=== PATIENT | male | born 1960 | race Caucasian/White ===

== ENCOUNTER 2023-11-28 10:02 | Emergency (ER) | payer BC ==
[~2023-11-28 10:02] MED LIST: Potassium Chloride 10 MEQ Tab.ER ONE
[2023-11-28] MEDS: HYDROmorphone 2 MG/ML Syringe IVPUSH ONE ×2 (10:26→12:40)
[2023-11-28] MEDS ORDERED: Ondansetron 4 MG/2 ML SDV IVPUSH ONE (10:33)
[2023-11-28 10:48] LABS: BASOPHILS ABSOLUTE AUTO 0.02 K/uL (0.02-0.10); BASOPHILS PERCENT AUTO 0.1 % (0.0-0.5); EOSINOPHILS ABSOLUTE AUTO 0.06 K/uL (0.04-0.40); EOSINOPHILS PERCENT AUTO 0.4 % (1.0-5.0); HEMATOCRIT 39.2 % (40.0-54.0); HEMOGLOBIN 13.1 g/dL (13.0-18.0); LYMPHOCYTES ABSOLUTE AUTO 1.16 K/uL (1.50-4.00); LYMPHOCYTES PERCENT AUTO 8.4 % (20.0-40.0); MEAN CORPUSCULAR HEMOGLOBIN 27.6 pg (27.0-32.0); MEAN CORPUSCULAR HGB CONC 33.4 g/dL (31.0-35.0); MEAN CORPUSCULAR VOLUME 83 fL (76-96); MEAN PLATELET VOLUME 9.1 fL (6.0-10.0); MONOCYTES PERCENT AUTO 8.7 % (3.0-10.0); NEUTROPHILS ABSOLUTE AUTO 11.39 K/uL (2.00-7.50); NEUTROPHILS PERCENT AUTO 82.4 % (45.0-70.0); PLATELET COUNT,PLT 339 K/uL (150-400); RED BLOOD CELL COUNT 4.74 M/uL (4.50-6.50); RED CELL DISTRIBUTION WIDTH 13.9 % (11.0-16.0); WHITE BLOOD CELL COUNT,WBC 13.8 K/uL (4.0-11.0)
[2023-11-28 10:53] LABS: APPEARANCE,URINE CLOUDY (CLEAR); BILIRUBIN,URINE NEGATIVE (NEGATIVE); COLOR,URINE YELLOW; GLUCOSE,URINE NEGATIVE (NEGATIVE); KETONES,URINE NEGATIVE (NEGATIVE); LEUKOCYTE ESTERASE,URINE NEGATIVE (NEGATIVE); NITRITE,URINE NEGATIVE (NEGATIVE); OCCULT BLOOD,URINE TRACE-INTACT (NEGATIVE); PROTEIN,URINE TRACE mg/dL (NEGATIVE); UROBILINOGEN,URINE 0.2 E.U./dL (0.2-1.0)
[2023-11-28 11:08] LABS: A/G RATIO 1.1 (0.8-2.0); ALANINE AMINOTRANSFERASE,ALT 28 U/L (12-78); ALKALINE PHOSPHATASE 130 U/L (46-116); ANION GAP 13.5 mmol/L (5.0-15.0); ASPARTATE AMNIOTRANSFERASE,AST 25 U/L (15-37); BILIRUBIN TOTAL 0.5 mg/dL (0.0-1.0); BLOOD UREA NITROGEN,BUN 12 mg/dL (8-26); BUN/CREATININE RATIO 14.5 (6-25); CALCIUM 8.3 mg/dL (8.5-10.1); CARBON DIOXIDE,CO2 25.6 mmol/L (21.0-32.0); CHLORIDE,CL 92 mmol/L (98-107); CREATININE 0.83 mg/dL (0.70-1.30); ESTIMATED GFR 98 mL/min (>60); GLUCOSE RANDOM 140 mg/dL (74-100); POTASSIUM,K 3.1 mmol/L (3.5-5.1); PROTEIN TOTAL,TP 7.5 g/dL (6.4-8.2); SODIUM,NA 128 mmol/L (136-145)
[2023-11-28] MEDS ORDERED: Iopamidol 612 MG/ML 100 ML Bottle IV PRN (11:08)
[2023-11-28 11:09] LABS: RBC,URINE 0-5 /HPF; WBC,URINE 0-5 /HPF
[2023-11-28 11:10] LABS: LIPASE 1664 U/L (16-77)
[2023-11-28] MEDS ORDERED: Sodium Chloride 0.9% 50 ML SDV FLUSH SCH (11:15)
[2023-11-28] MEDS ORDERED: Sodium Chloride 0.9% 1,000 ML IV ONE (11:49)
[2023-11-28] MEDS ORDERED: Potassium Chloride 10 MEQ Tab.ER ONE (12:16)
[2023-11-28] MEDS ORDERED: Potassium Chloride 20 MEQ Tab.ER ONE (12:16)
[2023-11-28] MEDS ORDERED: Potassium Chloride 20 MEQ Tab.ER PO ONE (12:22)
== END 2023-11-28 13:00 | disposition home or self-care (01) ==
LOC: LB.ED 10:02
DX: K85.90 Acute pancreatitis without necrosis or infection, unspecified (principal); I10 Essential (primary) hypertension; F17.210 Nicotine dependence, cigarettes, uncomplicated; K21.9 Gastro-esophageal reflux disease without esophagitis; Z79.82 Long term (current) use of aspirin; Z79.899 Other long term (current) drug therapy
CPT/HCPCS: 36415; 74177; 80053; 81001; 83690; 83735; 85025; 96361; 96374; 96375; 99284; 99284-25; A9270-GY; J1170; J2405; J3490; J7030; Q9967

== ENCOUNTER 2023-11-29 02:30 | Emergency (ER) | payer BC ==
[2023-11-29] MEDS ORDERED: Acetaminophen/oxyCODONE 325-5 MG Tab ONE (03:00)
[2023-11-29] MEDS ORDERED: Morphine 30 MG Tab.ER ONE (03:00)
[2023-11-29] MEDS: HYDROmorphone 2 MG/ML Syringe SUBCUT SCH (03:00)
== END 2023-11-29 03:20 | disposition home or self-care (01) ==
LOC: LB.ED 02:30
DX: K85.90 Acute pancreatitis without necrosis or infection, unspecified (principal); I10 Essential (primary) hypertension; K21.9 Gastro-esophageal reflux disease without esophagitis; F17.210 Nicotine dependence, cigarettes, uncomplicated; Z88.8 Allergy status to other drugs, medicaments and biological substances; Z79.82 Long term (current) use of aspirin; Z79.899 Other long term (current) drug therapy
CPT/HCPCS: 96372; 99283; 99284; A9270-GY; J1170

== ENCOUNTER 2024-04-07 08:26 | Day surgery (SDC) | payer MEDICARE ==
[~2024-04-07 08:26] MED LIST changes: +Metoclopramide 10 MG/2 ML SDV IV PRN; -Potassium Chloride 10 MEQ Tab.ER ONE; +Sodium Chloride 0.9% 1,000 ML IV SCH
[2024-04-07] MEDS: Sodium Chloride 0.9% 1,000 ML IV SCH (08:57)
== END 2024-04-07 10:30 | disposition home or self-care (01) ==
LOC: LB.SDS 08:26
PROVIDERS: ATTEND Surgery
DX: Z12.11 Encounter for screening for malignant neoplasm of colon (principal); D12.3 Benign neoplasm of transverse colon; D12.5 Benign neoplasm of sigmoid colon; K57.30 Diverticulosis of large intestine without perforation or abscess without bleeding; I10 Essential (primary) hypertension; F17.200 Nicotine dependence, unspecified, uncomplicated
CPT/HCPCS: 45385; J2704; J7030; 88305

== ENCOUNTER 2024-12-10 15:34 | Observation (INO) | payer MEDICARE ==
[2024-12-10] MEDS: Ondansetron 4 MG/2 ML SDV IVPUSH ONE ×2 (15:50→16:03)
[2024-12-10] MEDS: Sodium Chloride 0.9% 1,000 ML IV SCH ×2 (16:00→18:35)
[2024-12-10] MEDS: Prochlorperazine 10 MG/2 ML SDV IVPUSH ONE (16:10)
[2024-12-10] MEDS: Ketorolac 15 MG/ML SDV IVPUSH ONE (16:10)
[2024-12-10 16:15] LABS: BASOPHILS ABSOLUTE AUTO 0.02 K/uL (0.02-0.10); BASOPHILS PERCENT AUTO 0.1 % (0.0-0.5); HEMATOCRIT 45.7 % (40.0-54.0); HEMOGLOBIN 15.8 g/dL (13.0-18.0); LYMPHOCYTES PERCENT AUTO 9.9 % (20.0-40.0); MEAN CORPUSCULAR HEMOGLOBIN 29.3 pg (27.0-32.0); MEAN CORPUSCULAR HGB CONC 34.6 g/dL (31.0-35.0); MEAN CORPUSCULAR VOLUME 85 fL (76-96); MEAN PLATELET VOLUME 9.4 fL (6.0-10.0); MONOCYTES PERCENT AUTO 4.2 % (3.0-10.0); NEUTROPHILS ABSOLUTE AUTO 12.15 K/uL (2.00-7.50); NEUTROPHILS PERCENT AUTO 85.8 % (45.0-70.0); PLATELET COUNT,PLT 462 K/uL (150-400); RED CELL DISTRIBUTION WIDTH 12.8 % (11.0-16.0); WHITE BLOOD CELL COUNT,WBC 14.2 K/uL (4.0-11.0)
[2024-12-10] MEDS: Prochlorperazine 10 MG/2 ML SDV ONE (16:22)
[2024-12-10 16:28] LABS: A/G RATIO 1.1 (0.8-2.0); ALANINE AMINOTRANSFERASE,ALT 33 U/L (12-78); ALBUMIN 4.6 g/dL (3.4-5.0); ALKALINE PHOSPHATASE 153 U/L (46-116); ANION GAP 17.9 mmol/L (5.0-15.0); ASPARTATE AMNIOTRANSFERASE,AST 19 U/L (15-37); BILIRUBIN TOTAL 0.9 mg/dL (0.0-1.0); BLOOD UREA NITROGEN,BUN 24 mg/dL (8-26); BUN/CREATININE RATIO 20.5 (6-25); CALCIUM 9.9 mg/dL (8.5-10.1); CARBON DIOXIDE,CO2 28.1 mmol/L (21.0-32.0); CHLORIDE,CL 99 mmol/L (98-107); CREATININE 1.17 mg/dL (0.70-1.30); ESTIMATED GFR 69 mL/min (>60); GLUCOSE RANDOM 166 mg/dL (74-100); PROTEIN TOTAL,TP 8.8 g/dL (6.4-8.2); SODIUM,NA 142 mmol/L (136-145)
[2024-12-10 16:45] LABS: LIPASE 620 U/L (16-77)
[2024-12-10] MEDS: Losartan 50 MG Tab PO ONE (18:33)
[2024-12-10] MEDS: Diltiazem 240 MG Cap.ER PO ONE (18:33)
[2024-12-10] MEDS: Diltiazem 240 MG Cap.ER ONE (18:57)
[2024-12-10] MEDS: NS + KCl 20mEq/L 1,000 ML IV SCH (22:20)
[2024-12-10] MEDS ORDERED: Ondansetron 4 MG/2 ML SDV IVPUSH PRN (22:31)
[2024-12-10] MEDS ORDERED: Naloxone 2 MG/2 ML Syringe IVPUSH PRN (22:32)
[2024-12-10] MEDS ORDERED: Morphine 2 MG/ML SYRINGE IVPUSH PRN (22:32)
[2024-12-11] MEDS: Iopamidol 612 MG/ML 100 ML Bottle IV SCH (08:38)
[2024-12-11] MEDS: Sodium Chloride 0.9% 50 ML SDV FLUSH ONE (08:38)
[2024-12-11 08:46] LABS: HEMATOCRIT 38.4 % (40.0-54.0); HEMOGLOBIN 12.9 g/dL (13.0-18.0); MEAN CORPUSCULAR HEMOGLOBIN 29.5 pg (27.0-32.0); MEAN CORPUSCULAR HGB CONC 33.6 g/dL (31.0-35.0); RED BLOOD CELL COUNT 4.38 M/uL (4.50-6.50); RED CELL DISTRIBUTION WIDTH 13.1 % (11.0-16.0); WHITE BLOOD CELL COUNT,WBC 9.6 K/uL (4.0-11.0)
[2024-12-11 09:00] LABS: A/G RATIO 1.1 (0.8-2.0); ALBUMIN 3.6 g/dL (3.4-5.0); ANION GAP 12.6 mmol/L (5.0-15.0); BILIRUBIN TOTAL 0.9 mg/dL (0.0-1.0); BUN/CREATININE RATIO 22.8 (6-25); CALCIUM 8.5 mg/dL (8.5-10.1); CARBON DIOXIDE,CO2 29.5 mmol/L (21.0-32.0); CREATININE 0.79 mg/dL (0.70-1.30); EST CRCL DRUG DOSING (CG) 102.32 mL/min; POTASSIUM,K 3.1 mmol/L (3.5-5.1); PROTEIN TOTAL,TP 6.8 g/dL (6.4-8.2)
[2024-12-11] MEDS: Potassium Chloride Riders 10 MEQ in Premix Bag 1 BAG IV ONE (09:51)
== END 2024-12-11 13:48 | disposition home or self-care (01) ==
LOC: LB.ED 15:34 → LB.MS 18:56
PROVIDERS: ADMIT Family Medicine; ATTEND Family Medicine
DX: K85.20 Alcohol induced acute pancreatitis without necrosis or infection (principal); I10 Essential (primary) hypertension; E78.00 Pure hypercholesterolemia, unspecified; K21.9 Gastro-esophageal reflux disease without esophagitis; F32.A Depression, unspecified; F17.210 Nicotine dependence, cigarettes, uncomplicated; Z79.899 Other long term (current) drug therapy
CPT/HCPCS: 36415; 74177; 80053; 83690; 85025; 85027; 96361; 96365; 96366; 96374; 96375; 99222; 99239; 99285-25; A9270-GY; G0378; J0780; J1885; J2405; J3480; J3490; J7030; Q9967

== ENCOUNTER 2025-03-19 14:47 | Inpatient (IN) | payer MEDICARE ==
[2025-03-19] MEDS: Sodium Chloride 0.9% 1,000 ML IV SCH ×2 (15:10→17:30)
[2025-03-19] MEDS: Morphine 4 MG/ML VIAL IVPUSH ONE ×2 (15:22→15:30)
[2025-03-19] MEDS ORDERED: Sodium Chloride 0.9% 10 ML Syringe FLUSH PRN (15:23)
[2025-03-19] MEDS: Ondansetron 4 MG/2 ML SDV IVPUSH ONE (15:24)
[2025-03-19 15:38] LABS: HEMATOCRIT 40.8 % (40.0-54.0); MEAN CORPUSCULAR HEMOGLOBIN 28.6 pg (27.0-32.0); MEAN CORPUSCULAR HGB CONC 34.3 g/dL (31.0-35.0); MEAN PLATELET VOLUME 9.2 fL (6.0-10.0); RED BLOOD CELL COUNT 4.9 M/uL (4.50-6.50); RED CELL DISTRIBUTION WIDTH 13.1 % (11.0-16.0); WHITE BLOOD CELL COUNT,WBC 15.4 K/uL (4.0-11.0)
[2025-03-19 15:43] LABS: ALANINE AMINOTRANSFERASE,ALT 23 U/L (12-78); ALBUMIN 4.1 g/dL (3.4-5.0); ALKALINE PHOSPHATASE 162 U/L (46-116); ANION GAP 14.2 mmol/L (5.0-15.0); ASPARTATE AMNIOTRANSFERASE,AST 18 U/L (15-37); BILIRUBIN TOTAL 0.7 mg/dL (0.0-1.0); BLOOD UREA NITROGEN,BUN 10 mg/dL (8-26); BUN/CREATININE RATIO 9.9 (6-25); C-REACTIVE PROTEIN 34.6 mg/L (<5.0); CALCIUM 9.9 mg/dL (8.5-10.1); CHLORIDE,CL 93 mmol/L (98-107); CREATININE 1.01 mg/dL (0.70-1.30); ESTIMATED GFR 82 mL/min (>60); GLUCOSE RANDOM 129 mg/dL (74-100); POTASSIUM,K 3.2 mmol/L (3.5-5.1); PROTEIN TOTAL,TP 8.3 g/dL (6.4-8.2); SODIUM,NA 133 mmol/L (136-145)
[2025-03-19 15:45] LABS: LIPASE 302 U/L (16-77)
[2025-03-19] MEDS: HYDROmorphone 2 MG/ML Syringe IVPUSH ONE (16:15)
[2025-03-19] MEDS: Iopamidol 612 MG/ML 100 ML Bottle IV PRN (16:30)
[2025-03-19] MEDS: Sodium Chloride 0.9% 50 ML SDV FLUSH SCH (16:30)
[2025-03-19] MEDS: Prochlorperazine 10 MG/2 ML SDV IVPUSH ONE (16:35)
[2025-03-19] MEDS: Potassium Chloride Riders 10 MEQ in Premix Bag 1 BAG IV ONE (16:43)
[2025-03-19] MEDS: Morphine 4 MG/ML VIAL ONE (16:58)
[2025-03-19] MEDS: Ondansetron 4 MG/2 ML SDV ONE (16:59)
[2025-03-19] MEDS: Metoprolol Tartrate 5 MG/5 ML SDV IVPUSH ONE (17:26)
[2025-03-19] MEDS ORDERED: Morphine 30 MG Tab.ER PO PRN (20:58)
[2025-03-19] MEDS: HYDROmorphone 2 MG Tab PO PRN (21:02)
[2025-03-19] MEDS: HYDROmorphone 2 MG/ML Syringe IVPUSH PRN (21:36)
[2025-03-20] MEDS: Esomeprazole 40 MG Cap PO SCH (06:18)
[2025-03-20 08:17] VITALS: BP 97/62; PULSE 93
[2025-03-20] MEDS: Hydrochlorothiazide 25 MG Tab PO SCH (08:18)
[2025-03-20] MEDS: Venlafaxine 37.5 MG Tab PO SCH (08:18)
[2025-03-20] MEDS: Diltiazem 120 MG Cap.CD PO SCH (08:19)
[2025-03-20] MEDS: Enoxaparin 40 MG/0.4 ML Syringe SUBCUT SCH (08:19)
[2025-03-20 08:38] LABS: HEMATOCRIT 33.2 % (40.0-54.0); HEMOGLOBIN 11.2 g/dL (13.0-18.0); MEAN CORPUSCULAR HEMOGLOBIN 29.2 pg (27.0-32.0); MEAN CORPUSCULAR HGB CONC 33.7 g/dL (31.0-35.0); MEAN PLATELET VOLUME 9.2 fL (6.0-10.0); RED BLOOD CELL COUNT 3.84 M/uL (4.50-6.50); WHITE BLOOD CELL COUNT,WBC 10.6 K/uL (4.0-11.0)
[2025-03-20 09:22] LABS: A/G RATIO 0.9 (0.8-2.0); ANION GAP 11.1 mmol/L (5.0-15.0); BILIRUBIN TOTAL 0.6 mg/dL (0.0-1.0); BUN/CREATININE RATIO 13.7 (6-25); C-REACTIVE PROTEIN 96.8 mg/L (<5.0); CALCIUM 8.5 mg/dL (8.5-10.1); CREATININE 0.73 mg/dL (0.70-1.30); EST CRCL DRUG DOSING (CG) 109.25 mL/min; MAGNESIUM 1.7 mg/dL (1.8-2.4); POTASSIUM,K 3.1 mmol/L (3.5-5.1); PROTEIN TOTAL,TP 6.2 g/dL (6.4-8.2)
[2025-03-20] MEDS: Losartan 50 MG Tab PO SCH (09:51)
== END 2025-03-20 10:06 | disposition home or self-care (01) | DRG 440 ==
LOC: LB.ED 14:47 → LB.MS 19:00
PROVIDERS: ADMIT Surgery; ATTEND Surgery
DX: K85.20 Alcohol induced acute pancreatitis without necrosis or infection (principal); K85.00 Idiopathic acute pancreatitis without necrosis or infection; E87.6 Hypokalemia; I10 Essential (primary) hypertension; E78.00 Pure hypercholesterolemia, unspecified; K21.9 Gastro-esophageal reflux disease without esophagitis; I16.0 Hypertensive urgency; F41.9 Anxiety disorder, unspecified; F32.A Depression, unspecified; Z90.49 Acquired absence of other specified parts of digestive tract; Z98.890 Other specified postprocedural states; Z88.8 Allergy status to other drugs, medicaments and biological substances; Z79.82 Long term (current) use of aspirin; Z79.899 Other long term (current) drug therapy
CPT/HCPCS: 36415; 74177; 80053; 83690; 83735; 85027; 86140; 96365; 96375; 99222; 99239; 99285-25; A9270-GY; J0780; J1171; J1650; J2270; J2405; J3480; J3490; J7030; Q9967

== ENCOUNTER 2025-07-07 07:24 | Emergency (ER) | payer MEDICARE ==
[2025-07-07] MEDS ORDERED: Sodium Chloride 0.9% 10 ML Syringe FLUSH PRN (08:26)
[2025-07-07 08:43] LABS: BASOPHILS ABSOLUTE AUTO 0.05 K/uL (0.02-0.10); BASOPHILS PERCENT AUTO 0.3 % (0.0-0.5); EOSINOPHILS ABSOLUTE AUTO 0.30 K/uL (0.04-0.40); EOSINOPHILS PERCENT AUTO 1.6 % (1.0-5.0); LYMPHOCYTES ABSOLUTE AUTO 1.87 K/uL (1.50-4.00); LYMPHOCYTES PERCENT AUTO 10.1 % (20.0-40.0); MEAN PLATELET VOLUME 9.0 fL (6.0-10.0); MONOCYTES ABSOLUTE AUTO 1.74 K/uL (0.20-0.80); MONOCYTES PERCENT AUTO 9.4 % (3.0-10.0); NEUTROPHILS ABSOLUTE AUTO 14.54 K/uL (2.00-7.50); NEUTROPHILS PERCENT AUTO 78.6 % (45.0-70.0); PLATELET COUNT,PLT 269 K/uL (150-400); RED BLOOD CELL COUNT 4.63 M/uL (4.50-6.50); RED CELL DISTRIBUTION WIDTH 17.2 % (11.0-16.0); WHITE BLOOD CELL COUNT,WBC 18.5 K/uL (4.0-11.0)
[2025-07-07 10:21] LABS: BLOOD UREA NITROGEN,BUN 16.0 mg/dL (8-26); CARBON DIOXIDE,CO2 29.3 mmol/L (21.0-32.0); CHLORIDE,CL 103.0 mmol/L (98-107); CREATININE 0.94 mg/dL (0.70-1.30); EST CRCL DRUG DOSING (CG) 84.85 mL/min; ESTIMATED GFR 89.0 mL/min (>60); GLUCOSE RANDOM 100.0 mg/dL (74-100); POTASSIUM,K 3.3 mmol/L (3.5-5.1); SODIUM,NA 139.0 mmol/L (136-145)
[2025-07-07 11:02] VITALS: BP 128/79; PULSE 73
== END 2025-07-07 10:16 | disposition home or self-care (01) ==
LOC: LB.ED 07:24
DX: L08.9 Local infection of the skin and subcutaneous tissue, unspecified (principal); S60.922A Unspecified superficial injury of left hand, initial encounter; E78.00 Pure hypercholesterolemia, unspecified; I10 Essential (primary) hypertension; K21.9 Gastro-esophageal reflux disease without esophagitis; F17.210 Nicotine dependence, cigarettes, uncomplicated; Z88.8 Allergy status to other drugs, medicaments and biological substances; Z79.899 Other long term (current) drug therapy; Z86.16 Personal history of COVID-19; W22.8XXA Striking against or struck by other objects, initial encounter; Y93.89 Activity, other specified
CPT/HCPCS: 36415; 73130-LT; 80048; 85025; 96365; 99283-25; J1335

== ENCOUNTER 2025-07-08 23:28 | Emergency (ER) | payer MEDICARE ==
[2025-07-08] MEDS: Ketorolac 15 MG/ML SDV IVPUSH ONE (23:42)
[2025-07-09 00:10] LABS: BASOPHILS ABSOLUTE AUTO 0.04 K/uL (0.02-0.10); BASOPHILS PERCENT AUTO 0.3 % (0.0-0.5); EOSINOPHILS ABSOLUTE AUTO 0.42 K/uL (0.04-0.40); EOSINOPHILS PERCENT AUTO 3.3 % (1.0-5.0); LYMPHOCYTES ABSOLUTE AUTO 1.28 K/uL (1.50-4.00); LYMPHOCYTES PERCENT AUTO 10.0 % (20.0-40.0); MEAN PLATELET VOLUME 8.4 fL (6.0-10.0); MONOCYTES ABSOLUTE AUTO 0.99 K/uL (0.20-0.80); MONOCYTES PERCENT AUTO 7.7 % (3.0-10.0); NEUTROPHILS ABSOLUTE AUTO 10.11 K/uL (2.00-7.50); NEUTROPHILS PERCENT AUTO 78.7 % (45.0-70.0); PLATELET COUNT,PLT 264 K/uL (150-400); RED BLOOD CELL COUNT 4.06 M/uL (4.50-6.50); RED CELL DISTRIBUTION WIDTH 16.8 % (11.0-16.0); WHITE BLOOD CELL COUNT,WBC 12.8 K/uL (4.0-11.0)
[2025-07-09] MEDS: VANCOmycin 1.5 GM/300 ML 1.5 GM in Premix Bag 1 BAG IV ONE (00:12)
[2025-07-09 00:25] LABS: BLOOD UREA NITROGEN,BUN 10.0 mg/dL (8-26); CARBON DIOXIDE,CO2 28.2 mmol/L (21.0-32.0); CHLORIDE,CL 103.0 mmol/L (98-107); CREATININE 0.87 mg/dL (0.70-1.30); EST CRCL DRUG DOSING (CG) 91.67 mL/min; ESTIMATED GFR 95.0 mL/min (>60); GLUCOSE RANDOM 125.0 mg/dL (74-100); POTASSIUM,K 3.1 mmol/L (3.5-5.1); SODIUM,NA 138.0 mmol/L (136-145)
[2025-07-09] MEDS: Iopamidol 612 MG/ML 100 ML Bottle IV SCH (01:34)
[2025-07-09] MEDS: Sodium Chloride 0.9% 50 ML SDV FLUSH ONE (01:34)
[2025-07-09] MEDS: VANCOmycin 1.5 GM/300 ML 1.5 GM in Premix Bag 1 BAG IV SCH (07:48)
[2025-07-09] MEDS: Ketorolac 15 MG/ML SDV IVPUSH ONE (09:45)
[2025-07-09] MEDS: Acetaminophen/oxyCODONE 325-5 MG Tab PO PRN (09:52)
[2025-07-09] MEDS: Potassium Chloride 10% 20 MEQ/15 ML Soln 15 ML UD Cup PO ONE (10:10)
== END 2025-07-09 10:50 ==
LOC: LB.ED 23:28
DX: L02.512 Cutaneous abscess of left hand (principal); L03.114 Cellulitis of left upper limb; E78.00 Pure hypercholesterolemia, unspecified; I10 Essential (primary) hypertension; K21.9 Gastro-esophageal reflux disease without esophagitis; F17.210 Nicotine dependence, cigarettes, uncomplicated; Z88.8 Allergy status to other drugs, medicaments and biological substances; Z79.899 Other long term (current) drug therapy
CPT/HCPCS: 36415; 73200; 80048; 85025; 96361; 96365; 96366; 96375; 99284; A9270; J1885; J2543; J3375; Q9967; S5010

== ENCOUNTER 2025-09-10 09:02 | Observation (INO) | payer MEDICARE ==
[2025-09-10] MEDS: Ondansetron 4 MG/2 ML SDV IVPUSH ONE (10:05)
[2025-09-10 10:09] LABS: BASOPHILS ABSOLUTE AUTO 0.02 K/uL (0.02-0.10); BASOPHILS PERCENT AUTO 0.2 % (0.0-0.5); EOSINOPHILS ABSOLUTE AUTO 0.01 K/uL (0.04-0.40); EOSINOPHILS PERCENT AUTO 0.1 % (1.0-5.0); LYMPHOCYTES ABSOLUTE AUTO 0.74 K/uL (1.50-4.00); LYMPHOCYTES PERCENT AUTO 7.1 % (20.0-40.0); MEAN PLATELET VOLUME 8.6 fL (6.0-10.0); MONOCYTES ABSOLUTE AUTO 0.72 K/uL (0.20-0.80); MONOCYTES PERCENT AUTO 6.9 % (3.0-10.0); NEUTROPHILS ABSOLUTE AUTO 8.97 K/uL (2.00-7.50); NEUTROPHILS PERCENT AUTO 85.7 % (45.0-70.0); PLATELET COUNT,PLT 331 K/uL (150-400); RED BLOOD CELL COUNT 5.09 M/uL (4.50-6.50); RED CELL DISTRIBUTION WIDTH 15.9 % (11.0-16.0); WHITE BLOOD CELL COUNT,WBC 10.5 K/uL (4.0-11.0)
[2025-09-10 10:28] LABS: A/G RATIO 1.0 (0.8-2.0); ALANINE AMINOTRANSFERASE,ALT 25.0 U/L (12-78); ASPARTATE AMNIOTRANSFERASE,AST 16.0 U/L (15-37); BILIRUBIN TOTAL 0.5 mg/dL (0.0-1.0); BLOOD UREA NITROGEN,BUN 8.0 mg/dL (8-26); CARBON DIOXIDE,CO2 29.0 mmol/L (21.0-32.0); CHLORIDE,CL 99.0 mmol/L (98-107); CREATININE 0.78 mg/dL (0.70-1.30); EST CRCL DRUG DOSING (CG) 102.25 mL/min; ESTIMATED GFR 98.0 mL/min (>60); GLUCOSE RANDOM 156.0 mg/dL (74-100); POTASSIUM,K 3.2 mmol/L (3.5-5.1); PROTEIN TOTAL,TP 8.4 g/dL (6.4-8.2); SODIUM,NA 141.0 mmol/L (136-145)
[2025-09-10] MEDS: Morphine 30 MG Tab.ER PO SCH (12:44)
[2025-09-10] MEDS: Venlafaxine 75 MG Cap.ER PO SCH (12:45)
[2025-09-10] MEDS: DILTIAZEM 120 MG PO SCH (12:46)
[2025-09-10] MEDS: ESOMEPRAZOLE 40 MG PO SCH (12:46)
[2025-09-10] MEDS: Potassium Chloride 20 MEQ Tab.ER ** OWN MED PO SCH (12:47)
[2025-09-10] MEDS: Ondansetron 4 MG/2 ML SDV IV PRN (14:29)
[2025-09-11] MEDS ORDERED: Morphine 30 MG Tab.ER PO PRN (00:28)
[2025-09-11] MEDS: VENLAFAXINE 75 MG PO SCH (07:55)
[2025-09-11] MEDS: HCTZ PO SCH (07:55)
[2025-09-11] MEDS: LOSARTAN PO SCH (07:55)
[2025-09-11 08:07] LABS: MEAN PLATELET VOLUME 8.4 fL (6.0-10.0); PLATELET COUNT,PLT 276.0 K/uL (150-400); RED BLOOD CELL COUNT 4.09 M/uL (4.50-6.50); RED CELL DISTRIBUTION WIDTH 15.9 % (11.0-16.0); WHITE BLOOD CELL COUNT,WBC 9.4 K/uL (4.0-11.0)
[2025-09-11 08:27] LABS: A/G RATIO 1.0 (0.8-2.0); ALANINE AMINOTRANSFERASE,ALT 24.0 U/L (12-78); ASPARTATE AMNIOTRANSFERASE,AST 18.0 U/L (15-37); BILIRUBIN TOTAL 0.5 mg/dL (0.0-1.0); BLOOD UREA NITROGEN,BUN 15.0 mg/dL (8-26); CARBON DIOXIDE,CO2 29.6 mmol/L (21.0-32.0); CHLORIDE,CL 107.0 mmol/L (98-107); CREATININE 1.15 mg/dL (0.70-1.30); EST CRCL DRUG DOSING (CG) 69.35 mL/min; ESTIMATED GFR 70.0 mL/min (>60); GLUCOSE RANDOM 94.0 mg/dL (74-100); POTASSIUM,K 3.5 mmol/L (3.5-5.1); PROTEIN TOTAL,TP 6.7 g/dL (6.4-8.2); SODIUM,NA 144.0 mmol/L (136-145)
[2025-09-11] MEDS ORDERED: QUETIAPINE 400 MG PO SCH (20:00)
== END 2025-09-11 09:40 | disposition home or self-care (01) ==
LOC: LB.ED 09:02 → LB.MS 11:00 → UNDOADMOB 11:08 → INTOOBSV 11:08 → LB.MS 11:08
PROVIDERS: ADMIT Nurse Practitioner Family; ATTEND Nurse Practitioner Family
DX: K85.20 Alcohol induced acute pancreatitis without necrosis or infection (principal); E87.6 Hypokalemia; E78.00 Pure hypercholesterolemia, unspecified; I10 Essential (primary) hypertension; K21.9 Gastro-esophageal reflux disease without esophagitis; Z79.899 Other long term (current) drug therapy
CPT/HCPCS: 36415; 80053; 83690; 83735; 85025; 85027; 86140; 96361; 96365; 96375; 96376; 99222; 99238; 99284; A9270; G0378; J1171; J2270; J2405; J3480; J7030; J7040; 96374

== ENCOUNTER 2025-10-16 08:09 | Inpatient (IN) | payer MEDICARE ==
[2025-10-16] MEDS: Ondansetron 4 MG/2 ML SDV IVPUSH ONE (09:06)
[2025-10-16] MEDS ORDERED: Sodium Chloride 0.9% 10 ML Syringe FLUSH PRN ×2 (09:10→10:01)
[2025-10-16 09:20] LABS: MEAN PLATELET VOLUME 9.5 fL (6.0-10.0); PLATELET COUNT,PLT 238.0 K/uL (150-400); RED BLOOD CELL COUNT 4.65 M/uL (4.50-6.50); RED CELL DISTRIBUTION WIDTH 16.1 % (11.0-16.0); WHITE BLOOD CELL COUNT,WBC 12.7 K/uL (4.0-11.0)
[2025-10-16 09:45] LABS: A/G RATIO 0.9 (0.8-2.0); ALANINE AMINOTRANSFERASE,ALT 27.0 U/L (12-78); ASPARTATE AMNIOTRANSFERASE,AST 16.0 U/L (15-37); BILIRUBIN TOTAL 0.9 mg/dL (0.0-1.0); BLOOD UREA NITROGEN,BUN 18.0 mg/dL (8-26); CARBON DIOXIDE,CO2 28.4 mmol/L (21.0-32.0); CHLORIDE,CL 99.0 mmol/L (98-107); CREATININE 1.16 mg/dL (0.70-1.30); EST CRCL DRUG DOSING (CG) 68.75 mL/min; ESTIMATED GFR 69.0 mL/min (>60); GLUCOSE RANDOM 167.0 mg/dL (74-100); PROTEIN TOTAL,TP 8.6 g/dL (6.4-8.2); SODIUM,NA 141.0 mmol/L (136-145)
[2025-10-16 09:47] LABS: POTASSIUM,K 2.9 mmol/L (3.5-5.1)
[2025-10-16] MEDS: Iopamidol 612 MG/ML 100 ML Bottle IV SCH (10:07)
[2025-10-16] MEDS: Sodium Chloride 0.9% 50 ML SDV FLUSH ONE (10:07)
[2025-10-16] MEDS ORDERED: Ondansetron 4 MG/2 ML SDV IV PRN (13:58)
[2025-10-16] MEDS: Lactated Ringers 1,000 ML IV SCH (14:32)
[2025-10-17] MEDS: Diltiazem 120 MG Cap.CD PO SCH (08:25)
[2025-10-17 09:02] LABS: MEAN PLATELET VOLUME 9.4 fL (6.0-10.0); PLATELET COUNT,PLT 231.0 K/uL (150-400); RED BLOOD CELL COUNT 3.52 M/uL (4.50-6.50); RED CELL DISTRIBUTION WIDTH 15.9 % (11.0-16.0); WHITE BLOOD CELL COUNT,WBC 9.5 K/uL (4.0-11.0)
[2025-10-17 09:17] LABS: A/G RATIO 0.8 (0.8-2.0); ALANINE AMINOTRANSFERASE,ALT 13.0 U/L (12-78); ASPARTATE AMNIOTRANSFERASE,AST 6.0 U/L (15-37); BILIRUBIN TOTAL 1.0 mg/dL (0.0-1.0); BLOOD UREA NITROGEN,BUN 12.0 mg/dL (8-26); CARBON DIOXIDE,CO2 29.6 mmol/L (21.0-32.0); CHLORIDE,CL 105.0 mmol/L (98-107); CREATININE 0.78 mg/dL (0.70-1.30); EST CRCL DRUG DOSING (CG) 102.25 mL/min; ESTIMATED GFR 98.0 mL/min (>60); GLUCOSE RANDOM 87.0 mg/dL (74-100); POTASSIUM,K 3.3 mmol/L (3.5-5.1); PROTEIN TOTAL,TP 6.8 g/dL (6.4-8.2); SODIUM,NA 143.0 mmol/L (136-145)
[2025-10-18] MEDS ORDERED: Venlafaxine 75 MG Cap.ER PO SCH (08:00)
== END 2025-10-17 13:08 | disposition home or self-care (01) | DRG 440 ==
LOC: LB.ED 08:09 → LB.MS 14:12
PROVIDERS: ADMIT Surgery; ATTEND Surgery
DX: K85.20 Alcohol induced acute pancreatitis without necrosis or infection (principal); K85.10 Biliary acute pancreatitis without necrosis or infection; E87.6 Hypokalemia; E78.00 Pure hypercholesterolemia, unspecified; I10 Essential (primary) hypertension; K21.9 Gastro-esophageal reflux disease without esophagitis; F41.9 Anxiety disorder, unspecified; F32.A Depression, unspecified; F17.200 Nicotine dependence, unspecified, uncomplicated; E55.9 Vitamin D deficiency, unspecified; Z90.49 Acquired absence of other specified parts of digestive tract; Z98.890 Other specified postprocedural states; Z79.899 Other long term (current) drug therapy
CPT/HCPCS: 36415; 74177; 80053; 83690; 83735; 85027; 86140; 87040; 96361; 96374; 96375; 96376; 99285-25; A9270-GY; J1171; J2270; J2405; J2543; J3480; J7030; J7120; Q9967